=== PATIENT | female | born 2000 | race Caucasian/White ===

== ENCOUNTER 2025-03-08 18:17 | Emergency (ER) | payer SELFPAY ==
[~2025-03-08] VITALS: Ht 162.6 cm; Wt 56.0 kg
[2025-03-08 18:33] VITALS: O2SAT 100
[2025-03-08 19:06] LABS: CLARITY URINE CLEAR (CLEAR); COLOR URINE YELLOW (YELLOW); GLUCOSE URINE NEGATIVE (NEGATIVE); KETONES URINE NEGATIVE (NEGATIVE); LEUKOCYTE ESTERASE URINE NEGATIVE (NEGATIVE); NITRITE URINE NEGATIVE (NEGATIVE); OCCULT BLOOD URINE 1+ (NEGATIVE); PH URINE 6.5 (4.5-8.0); PROTEIN URINE NEGATIVE (NEGATIVE); SPECIFIC GRAVITY URINE 1.017 (1.005-1.030); UROBILINOGEN URINE 0.2 E.U./dL (0.2-1.0)
[2025-03-08 19:30] LABS: BACTERIA URINE TRACE; SQUAMOUS EPITHELIAL CELL URINE 1+ /lpf (RARE/1+); WBC URINE 0-2 /hpf (0-2)
[2025-03-08 19:44] LABS: BASOPHILS % 0.8 % (0.0-2.0); EOSINOPHILS % 0.4 % (0.0-5.0); HEMATOCRIT. 29.7 % (36.0-48.0); HEMOGLOBIN. 9.4 g/dL (12.0-16.0); LYMPHOCYTES % 33.4 % (20.0-50.0); MEAN PLATELET VOLUME 7.4 fl (7.4-10.4); MONOCYTES % 12.2 % (2.0-8.0); NEUTROPHILS % 53.2 % (40.0-76.0); PLATELET 326 x1000/uL (130-400); RED BLOOD CELL COUNT 4.12 mill/uL (4.2-5.4); RED CELL DISTRIBUTION WIDTH 21.1 % (11.6-14.6)
[2025-03-08 19:57] LABS: CREATININE 0.7 mg/dL (0.6-1.0)
[2025-03-08 20:02] LABS: UREA NITROGEN BLOOD 11 mg/dL (9-23)
[2025-03-08 21:07] VITALS: BP 120/57; PULSE 82; RESP 17; TEMP 36.7; O2SAT 99
[2025-03-18] MEDS ORDERED: DOXY1TAB3 PO (20:23)
== END 2025-03-08 21:22 | disposition home or self-care (01) ==
LOC: ER 18:17
DX: O03.9 Complete or unspecified spontaneous abortion without complication (principal); O99.011 Anemia complicating pregnancy, first trimester; D50.9 Iron deficiency anemia, unspecified; Z3A.01 Less than 8 weeks gestation of pregnancy
CPT/HCPCS: 36415; 76801; 80048; 81003; 81025; 84702; 85025; 86850; 86900; 99285